=== PATIENT | female | born 1995 | race Two or more races ===

== ENCOUNTER 2021-01-20 01:10 | Emergency (ER) | payer MEDICAID, OTHER ==
[~2021-01-20] VITALS: Ht 154.9 cm; Wt 63.5 kg
[2021-01-20 03:10] VITALS: BP 127/62
== END 2021-01-20 03:45 | disposition home or self-care (01) ==
LOC: ER 01:14
DX: S80.862A Insect bite (nonvenomous), left lower leg, initial encounter (principal); W57.XXXA Bitten or stung by nonvenomous insect and other nonvenomous arthropods, initial encounter; Y93.89 Activity, other specified; Y92.89 Other specified places as the place of occurrence of the external cause; Y99.8 Other external cause status

== ENCOUNTER 2021-10-22 06:46 | Emergency (ER) | payer MEDICAID ==
[~2021-10-22] VITALS: Ht 154.9 cm; Wt 61.3 kg
[2021-10-22] MEDS ORDERED: PRED20TA2 PO (10:24)
[2021-10-22] MEDS ORDERED: CEPH-509 PO (10:24)
[2021-10-22] MEDS ORDERED: methylPREDNISolone SOD SUCC 125 MG/2 ML VL IM ONE (10:30)
[2021-10-22] MEDS ORDERED: diphenhdrAMINE HCL 25 MG CAP PO ONE (10:30)
[2021-10-22] MEDS ORDERED: cefTRIAXone SOD 1,000 MG VL IM ONE (10:30)
[2021-10-22 11:25] VITALS: BP 110/70
== END 2021-10-22 11:33 | disposition home or self-care (01) ==
LOC: ER 06:46
DX: S40.861A Insect bite (nonvenomous) of right upper arm, initial encounter (principal); Z79.899 Other long term (current) drug therapy; W57.XXXA Bitten or stung by nonvenomous insect and other nonvenomous arthropods, initial encounter; Y93.89 Activity, other specified; Y92.89 Other specified places as the place of occurrence of the external cause; Y99.8 Other external cause status
CPT/HCPCS: 96372; 99284; J0696; J2930